=== PATIENT | female | born 1945 | race Caucasian/White ===

== ENCOUNTER 2016-10-29 09:38 | Day surgery (SDC) | payer MEDICARE, BC ==
[~2016-10-29 09:38] MED LIST: BESIFLOXACIN HCL 0.6% OPH SUSP 5 ML BOTTLE OS PRN; BUPIVACAINE HCL 0.75% INJ/PF (7.5 MG/1 ML) 10 ML SDV OS PRN; CYCLOPENTOLATE 0.2%/PHENYLEPHRINE 1% OPH SOLN 2 ML OS PRN; KETOROLAC TROMETHAMINE 0.45% 4 DROP/0.4 ML DROPERETTE OS PRN; LIDOCAINE 4% INJ/PF (40 MG/ML) 5 ML AMPUL OS PRN; TETRACAINE HCL 0.5% OPH SOLN 0.6 ML DROPERETTE OS PRN; TROPICAMIDE 1% OPH SOLN 3 ML OS PRN
[2016-10-29] MEDS ORDERED: MIDAZOLAM 2 MG/2 ML INJ ONE (09:43)
[2016-10-29] MEDS ORDERED: CHONDR SU A NA/HYALUR INTRAOC KIT (SURGICARE) ONE (10:14)
[2016-10-29] MEDS ORDERED: PHENYLEPHRINE/KETOROLAC 1%-0.3% 4 ML VIAL ONE (10:14)
[2016-10-29] MEDS: TETRACAINE HCL 0.5% OPH SOLN 0.6 ML DROPERETTE OS PRN ×2 (10:25→11:03)
[2016-10-29] MEDS: CYCLOPENTOLATE 0.2%/PHENYLEPHRINE 1% OPH SOLN 2 ML OS PRN ×3 (10:25→10:40)
[2016-10-29] MEDS: TROPICAMIDE 1% OPH SOLN 3 ML OS PRN ×3 (10:25→10:40)
[2016-10-29] MEDS: BESIFLOXACIN HCL 0.6% OPH SUSP 5 ML BOTTLE OS PRN ×4 (10:25→11:36)
[2016-10-29] MEDS ORDERED: EPINEPHRINE INJ 30 MG/30 ML VIAL ONE (10:52)
[2016-10-29] MEDS ORDERED: EPINEPHRINE INJ/PF 1 MG/1 ML AMPULE ONE (11:45)
--- NOTE | 2016-10-29 16:09 | [facility] DISCHARGE SUMMARY E ---
[facility] Discharge Summary NAME: ELKIN GOOD AGE: 71Y ADMITTED: 10/29/2016 DISCHARGED: 10/29/2016 PREOPERATIVE DIAGNOSES: 1. Cataract, left eye. 2. Astigmatism, left eye. POSTOPERATIVE DIAGNOSES: 1. Cataract, left eye. 2. Astigmatism, left eye. HOSPITAL COURSE: The patient is a 71-year-old lady who underwent uneventful cataract extraction with toric intraocular lens implant, left eye, on 10/29/2016. She will be discharged to home. She was instructed to resume preoperative medications, take Tylenol as needed for discomfort, to keep her eye shielded, to use Besivance, Durezol, and Ilevro at 3 p.m. and 8 p.m., and to followup in my office in 1 day. DICTATING PHYSICIAN: SHELLEY WRIGHT M.D. [id number] PHY#: [id number] ID: [id number] JOB#: [id number] ACCT: [id number] cc:SHELLEY WRIGHT M.D. >
--- NOTE | 2016-10-31 14:41 | [facility] OPERATIVE REPORT E ---
[facility] Operative Report NAME: ELKIN GOOD AGE: 71Y DATE OF SURGERY: 10/29/2016 ROOM: PREOPERATIVE DIAGNOSES: 1. Cataract, left eye. 2. Astigmatism, left eye. POSTOPERATIVE DIAGNOSES: 1. Cataract, left eye. 2. Astigmatism, left eye. PROCEDURE PERFORMED: Phacoemulsification with toric intraocular lens, left eye. SURGEON: Belinda Wright MD ANESTHESIA: Topical with MAC. INDICATIONS FOR SURGERY: Difficulty reading road signs and print on TV and difficulty driving at night due to glare. Best corrected visual acuity 20/60. PROCEDURE: The patient was brought to the operating room and placed in the seated position. The 0, 180 and 270 degree axes of the eye were marked using a marking level. The patient was placed in the reclining and topical anesthesia was administered. This consisted of instrument wipe pledget soaked in a solution of 4% Xylocaine mixed with 0.75% Marcaine in a 1:1 ratio. A 2 x 1 cm pledget was placed in the superior fornix and a 1 x 1 cm pledget was placed in the inferior fornix. The eye was patched shut for 5 minutes. The patch and pledgets were removed. The eye was sterilely prepped and draped in the usual manner. Lid speculum was placed in the eye. Black silk 4-0 sutures were placed around the superior and the inferior rectus muscles to be used as traction. A conjunctival peritomy was made at the 135 degree axis. Hemostasis was obtained with bipolar cautery. A posterior limbal groove was created using a crescent knife and dissected anteriorly towards the cornea. A sharp point blade was used to create a paracentesis site at the 2 o'clock position. A 2.4 mm keratome was used to enter the anterior chamber through the groove. Viscoelastic was injected in the anterior chamber. An anterior capsulotomy was performed using Utrata forceps in a capsulorrhexis fashion. Hydrodissection and hydrodelineation were performed. Phacoemulsification was performed in a rqwxit-tmp-vhitutp technique. A total of 43 seconds of total phaco time was used. The I/A unit was used to remove residual cortex. Viscoelastic was placed in the capsular bag. Using the previously marked sites as reference, the 163 degree axis was marked on the eye. Intraocular lens Model SN6AT5, 21.5 diopter, serial number [id number] was placed in the eye and rotated within 10 degrees of the final axis. The I/A unit was used to removed residual viscoelastic. The lens was rotated to the 163 degree axis and centered nicely. The wound was seen to be watertight under high and low pressure, and no sutures were placed. The 4-0 black silk sutures and lid speculum were removed. The eye was shielded after Besivance drops were placed. The patient tolerated the procedure well and was sent to the recovery room in good condition. DICTATING PHYSICIAN: BELINDA WRIGHT M.D. [id number] PHY#: [id number] ID: [id number] JOB#: [id number] ACCT: [id number] cc:BELINDA WRIGHT M.D. > MTDD
== END 2016-10-29 12:30 | disposition home or self-care (01) ==
LOC: SC 09:38
PROVIDERS: ATTEND Ophthalmology
PROC: 08RK3JZ Replacement of Left Lens with Synthetic Substitute, Percutaneous Approach (ICD-10-PCS; principal; 2016-10-29 11:00)
DX: H25.813 Combined forms of age-related cataract, bilateral (principal); H52.202 Unspecified astigmatism, left eye; H40.053 Ocular hypertension, bilateral; H16.223 Keratoconjunctivitis sicca, not specified as Sjogren's, bilateral; Z88.2 Allergy status to sulfonamides; I10 Essential (primary) hypertension; E78.00 Pure hypercholesterolemia, unspecified; K21.9 Gastro-esophageal reflux disease without esophagitis; Z79.82 Long term (current) use of aspirin; Z79.899 Other long term (current) drug therapy
CPT/HCPCS: 66984; V2787; J2250; J3490 ×3; A9270; J0171; 142; C9447

== ENCOUNTER 2016-11-26 08:11 | Day surgery (SDC) | payer MEDICARE, BC ==
[~2016-11-26 08:11] MED LIST changes: -BESIFLOXACIN HCL 0.6% OPH SUSP 5 ML BOTTLE OS PRN; -BUPIVACAINE HCL 0.75% INJ/PF (7.5 MG/1 ML) 10 ML SDV OS PRN; -CYCLOPENTOLATE 0.2%/PHENYLEPHRINE 1% OPH SOLN 2 ML OS PRN; +KETOROLAC TROMETHAMINE 0.45% 4 DROP/0.4 ML DROPERETTE OD PRN; -KETOROLAC TROMETHAMINE 0.45% 4 DROP/0.4 ML DROPERETTE OS PRN; -LIDOCAINE 4% INJ/PF (40 MG/ML) 5 ML AMPUL OS PRN; +MIDAZOLAM 2 MG/2 ML INJ ONE; -TETRACAINE HCL 0.5% OPH SOLN 0.6 ML DROPERETTE OS PRN; -TROPICAMIDE 1% OPH SOLN 3 ML OS PRN
[2016-11-26] MEDS: TROPICAMIDE 1% OPH SOLN 3 ML OD PRN ×3 (08:40→09:00)
[2016-11-26] MEDS: CYCLOPENTOLATE 0.2%/PHENYLEPHRINE 1% OPH SOLN 2 ML OD PRN ×3 (08:40→09:00)
[2016-11-26] MEDS: BESIFLOXACIN HCL 0.6% OPH SUSP 5 ML BOTTLE OD PRN ×4 (08:40→09:58)
[2016-11-26] MEDS: TETRACAINE HCL 0.5% OPH SOLN 0.6 ML DROPERETTE OD PRN ×2 (08:41→09:00)
[2016-11-26] MEDS: BUPIVACAINE HCL 0.75% INJ/PF (7.5 MG/1 ML) 10 ML SDV OD PRN ×2 (09:30)
[2016-11-26] MEDS: LIDOCAINE 4% INJ/PF (40 MG/ML) 5 ML AMPUL OD PRN ×2 (09:30)
[2016-11-26] MEDS: PHENYLEPHRINE/KETOROLAC 1%-0.3% 4 ML VIAL ONE ×2 (09:44)
[2016-11-26] MEDS: CHONDR SU A NA/HYALUR INTRAOC KIT (SURGICARE) ONE ×2 (09:48)
--- NOTE | 2016-11-26 10:13 | [facility] DISCHARGE SUMMARY E ---
[facility] Discharge Summary NAME: ELKIN GOOD AGE: 71Y ADMITTED: 11/26/2016 DISCHARGED: 11/26/2016 FINAL DIAGNOSIS: Cataract, right eye. HOSPITAL COURSE: The patient is a 71-year-old who underwent uneventful cataract extraction with intraocular lens implant, right eye, on 11/26/16. DISPOSITION: The patient was discharged to home. DISCHARGE INSTRUCTIONS: She is instructed to resume preoperative medications, take Tylenol as needed for discomfort, to keep her eye shielded, to use Besivance, Durezol, and Ilevro at 3 p.m. and 8 p.m., and to follow up in my office in 1 day. DICTATING PHYSICIAN: SHELLEY WRIGHT M.D. [id number] [id number] PHY#: [id number] ID: [id number] JOB#: [id number] ACCT: [id number] cc:SHELLEY WRIGHT M.D. >
--- NOTE | 2016-11-26 10:13 | [facility] OPERATIVE REPORT E ---
[facility] Operative Report NAME: ELKIN GOOD AGE: 71Y DATE OF SURGERY: ROOM: [facility] Operative Report PREOPERATIVE DIAGNOSIS: CATARACT, RIGHT EYE. POSTOPERATIVE DIAGNOSIS: CATARACT, RIGHT EYE. PROCEDURE PERFORMED: PHACOEMULSIFICATION WITH POSTERIOR CHAMBER INTRAOCULAR LENS, RIGHT EYE. SURGEON: SHELLEY WRIGHT MD ANESTHESIA: TOPICAL WITH MAC. INDICATIONS FOR SURGERY: Difficulty with glare at night. Best corrected visual acuity, 20/50. PROCEDURE: The patient was brought to the Operating Room and placed on the operative table. Following tetracaine drops, topical anesthesia was administered. This consisted of instrument wipe pledgets soaked in a solution of 4% Xylocaine mixed with 0.75% Marcaine in a 1:2 ratio. A 2 x 1 cm pledget was placed in the superior fornix. A 1 x 1 cm pledget was placed in the inferior fornix. The eye was patched shut for 5 minutes. The patch was removed. The eye was sterilely prepped and draped in the usual manner. Lid speculum was placed in the eye. The pledgets were removed. 4-0 black silk sutures were placed around the superior and the inferior rectus muscles to be used as traction. A conjunctival peritomy was made at the 10 o'clock position. Hemostasis was obtained with bipolar cautery. A posterior limbal groove was created using a crescent knife and dissected anteriorly towards the cornea. A sharp point blade was used to create a paracentesis site at the 2 o'clock position. A 2.4 mm keratome was used to enter the anterior chamber through the groove. Viscoelastic was injected into the anterior chamber. An anterior capsulotomy was performed using Utrata forceps in a capsulorrhexis fashion. Hydrodissection and hydrodelineation were performed. Phacoemulsification was performed in kswbye-coa-npibdhf technique. A total of 42 seconds phaco time was used. Following this, the I/A unit was used to remove residual cortex. Viscoelastic was injected into the capsular bag. Intraocular lens model [id number], 20.0 diopters, serial number [id number] was placed in the capsular bag. The I/A unit was used to remove residual viscoelastic. The wound was seen to be watertight under high and low pressure, and no sutures were placed. The intraocular lens was well centered. The pressure was adjusted in the eye to normal pressure. The 4-0 black silk sutures and lid speculum were removed. The eye was shielded after Besivance drops were placed. The patient tolerated the procedure well and was sent to the Recovery Room in good condition. DICTATING PHYSICIAN: SHELLEY WRIGHT M.D. DICTATING PHYSICIAN: SHELLEY WRIGHT M.D. [id number] [id number] PHY#: [id number] ID: [id number] JOB#: [id number] ACCT: [id number] cc:SHELLEY WRIGHT M.D. >
== END 2016-11-26 10:35 | disposition home or self-care (01) ==
LOC: SC 08:11
PROVIDERS: ATTEND Ophthalmology
PROC: 08RJ3JZ Replacement of Right Lens with Synthetic Substitute, Percutaneous Approach (ICD-10-PCS; principal; 2016-11-26 09:30)
DX: H25.811 Combined forms of age-related cataract, right eye (principal); Z96.1 Presence of intraocular lens; I10 Essential (primary) hypertension; K21.9 Gastro-esophageal reflux disease without esophagitis; K44.9 Diaphragmatic hernia without obstruction or gangrene; Z79.899 Other long term (current) drug therapy; Z79.82 Long term (current) use of aspirin
CPT/HCPCS: 66984; V2632; J2250; J3490 ×3; A9270; C9447; 142